=== PATIENT | male | born 1955 | race Caucasian/White ===

== ENCOUNTER 2022-11-03 11:27 | Outpatient (CLI) | payer MEDICARE ==
[2022-11-03 12:04] LABS: CREATININE 1.17 MG/DL (0.60-1.10); eGFR 62 ML/MIN
[2022-11-03] MEDS ORDERED: iohexol 350 MG/ML 50ML vial IV ONE (12:25)
== END 2022-11-03 23:59 | disposition home or self-care (01) ==
LOC: RAD 11:27
PROVIDERS: ATTEND Internal Medicine Interventional Cardiology
DX: I70.213 Atherosclerosis of native arteries of extremities with intermittent claudication, bilateral legs (principal); I70.8 Atherosclerosis of other arteries; I70.298 Other atherosclerosis of native arteries of extremities, other extremity; I65.23 Occlusion and stenosis of bilateral carotid arteries; I16.9 Hypertensive crisis, unspecified; I25.10 Atherosclerotic heart disease of native coronary artery without angina pectoris
CPT/HCPCS: 36415; 75635; 82565; Q9967